=== PATIENT | male | born 1985 | race Caucasian/White ===

== ENCOUNTER 2017-03-28 09:27 | Emergency (ER) | payer OTHER ==
[~2017-03-28] VITALS: Ht 170.2 cm; Wt 64.5 kg
[~2017-03-28 09:27] MED LIST: PANT40TA3 PO
[2017-03-28 09:37] VITALS: Ht 170.2 cm; Wt 64.5 kg
[2017-03-28] MEDS ORDERED: HYDROCODONE/APAP (5/325) TAB PO ONE (10:00)
[2017-03-28] MEDS ORDERED: IBUPROFEN 600 MG TAB PO ONE (10:00)
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
--- NOTE | 2017-03-28 10:55 | RADRPT ---
PROCEDURE: XR Left Elbow. CLINICAL INDICATION: Fall, injury. TECHNIQUE: Three views of the left elbow are available for review. COMPARISON: None available FINDINGS: The osseous structures, articular spaces, and surrounding soft tissues of the left elbow are intact. No acute fracture or dislocation is seen. No radiopaque foreign body is identified. No fat pad sa il sign is identified to indicate a hemarthrosis. RPTAT: GLORIA IMPRESSION: 1. Unremarkable left elbow x-ray series. .Alix Webber MD, MD Date Time Electronically viewed and signed by .Alix Webber MD, MD on 03/28/2017 10:54 .T/
--- NOTE | 2017-03-28 10:56 | RADRPT ---
PROCEDURE: XR Forearm. CLINICAL INDICATION: Fall, injury TECHNIQUE: AP and lateral views of the left forearm were obtained. COMPARISON: No prior studies are available for comparison. FINDINGS: There is normal mineralization and alignment. No fracture or osseous lesion is identified. The soft tissues are unremarkable. RPTAT: GLORIA IMPRESSION: 1. Unremarkable left forearm x-ray series. .Alix Webber MD, MD Date Time Electronically viewed and signed by .Alix Webber MD, on 03/28/2017 10:56 .T/
--- NOTE | 2017-03-28 10:56 | RADRPT ---
PROCEDURE: XR Left Wrist. CLINICAL INDICATION: Fall, injury TECHNIQUE: Three views of the left wrist were obtained. COMPARISON: No prior studies are available for comparison. FINDINGS: There is no acute fracture or dislocation. The joint spaces are maintained. No erosive changes are visualized. The carpal bones are intact. The soft tissues are unremarkable. RPTAT: ZZ IMPRESSION: 1. No acute bony abnormality. .Alix Webber MD, MD Date Time Electronically viewed and signed by .Alix Webber MD, on 03/28/2017 10:55 .T/
[2017-03-28] MEDS ORDERED: IBUP-1542 PO (11:01)
== END 2017-03-28 11:12 | disposition home or self-care (01) ==
LOC: FTE 09:27
DX: S40.022A Contusion of left upper arm, initial encounter (principal); J02.9 Acute pharyngitis, unspecified; F17.210 Nicotine dependence, cigarettes, uncomplicated; V00.142A Scooter (nonmotorized) colliding with stationary object, initial encounter
CPT/HCPCS: 73080; 73090; 73110; Z7502; Z7610